=== PATIENT | female | born 1945 | race Caucasian/White ===

== ENCOUNTER 2017-11-07 09:00 | Outpatient (RCR) | payer OTHER ==
--- NOTE | 2017-10-23 15:41 | RS.OPPTEV2 ---
Date of Note: 10/22/17 Visit #: 1 Date of Evaluation: 10/22/17 Payer Source: MEDICARE Treatment Diagnosis: Frequent falls, LE weakness History of Condition/Mechanism of Injury:: Patient reports having frequent falls. States she has fallen four times in the last 6 months. Prior Level of Function.....Patient was independent with: ADL's, Self Care, Caregiving, Ambulation/Mobility, Community Integration/Access Functional Limitations: Lifting, Standing, Ambulation, Community Access/ Integration Current Subjective/complaints:: States her sons wanted her to come to therapy because of her recent falls. States her most recent fall was at the end of July 2017, when she was walking out to her car and she fell with no warning. Patient states she has a quad cane that she uses when she walks long distances. She feels like she is falling due to leg weakness. States she has numbness in her feet, which comes and goes. States her left hip is hurting. States she tripped not long ago and feels that she may have strained her hip. She is hopeful that Physical Therapy will get her stronger and help her avoid falls. Medical History Medical History: Hypertension, Diabetes Medical History Comments:: Peripheral neuropathy Surgical History: Hysterectomy Surgical History Comments:: bilateral cataract surgery Hx Home Medications: HCTZ, Ibuprofen PRN, Lisinopril,Metformin, Pravastatin Functional Outcome Measure Tinetti: 19 (19/28=32.1% impairment) Other: Timed Get UP & GO: 13.5 seconds Fall Risk Assessment on [employer] Balance Pattern Maker score of 2.3 Overall Stability Index - G Codes & Severity Modifier G Codes & Modifier: Mobility current CJ. Mobility goal CI Source of G Code score: Tinetti Assessment shows her to be at Moderate risk for falls. Observation - Observation Posture: Forward Head, Rounded Shoulders, Decreased Lumbar Lordosis Handedness: Right Gait - Gait Pattern Gait Comments: Patient ambulates without a cane in the department. She demonstrates bilateral trunk lean laterally and minimal foot clearance during swing phase. She demonstrates a wide base of support with ambulation. General Range of Motion: Patient demonstrates function AROM WFL's of trunk and LE's. Muscle Strength: Bilateral hip strength is 4-/5 generally throughout. Bilateral quads 4/5, HS 4/5. Ankles bilaterally 4/5. Trunk strength 3+/5. Sensation - Sensation Comments: States sensation to light touch and deep pressure is intact throughout bilateral LE's. States numbness in her feet comes and goes. Balance - Sitting Balance Static Sitting Balance: Good Dynamic Sitting Balance: Good - Standing Balance Static Standing Balance: Good (-) Dynamic Standing Balance: Good (-) Coordination - Tests Bilateral Heel to Anderson: Mild Deviation (most likely due to hip weakness) Toe Tapping: Normal/Intact Interventions - Exercise/Activities/Manual Therapy Exercises/Activities: Patient instructed in exercises for home of: seated hip fleixon, seated unsupported anterior/posterior trunk weight shifting, bridging, and standing hip abduction. Emphasized the need to use a secure surface to hold on to for the standing hip exercise. Manual Therapy: NA HOME EXERCISE PROGRAM: seated hip fleixon, seated unsupported anterior/ posterior trunk weight shifting, bridging, and standing hip abduction. Emphasized the need to use a secure surface to hold on to for the standing hip exercise. - Charges Timed Code Treatment Minutes: 55 mins Total Treatment Time: 55 mins Procedures billed for this date of service:: [facility] Assessment Assessment: Patient presents to therapy with a diagnosis of frequent falls. She demonstrates weakness in the LE's and trunk. Tinetti Assessment presents her to be at a Moderate risk for falls. She also presents to be at risk for falls with a score of 13.5 seconds on the Timed Up & Go test. She demonstrates good potential to benefit from LE and trunk strengthening and balance activities to improve safety and decrease her risk for falls. Patient Education: Education of diagnosis, Body/Joint mechanics, Home Exercise Program, Activity Modification, Education of Plan of Care Rehab Potential: Good Short Term Goals Goal #1: Pt independent and compliant with HEP. Goal to be met by: 11/06/17 Goal #2: Trunk strength 4/5. Goal to be met by: 11/06/17 Goal #3: Bilateral hip strength generally 4/5. Goal to be met by: 11/06/17 Microsoft Exchange Architect Goals Goal #1: Pt knows HEP and to continue ex's to maintain level of function at D/C. Goal to be met by: 12/02/17 Goal #2: Score on Tinetti Assessment improved to 24/28. Goal to be met by: 12/02/17 Goal #3: Pt to amb. community distances with AAD and good safety. Goal to be met by: 12/02/17 Goal #4: Pt to report improved confidence in balance and safety. Goal to be met by: 12/02/17 Plan - Treatment to be Provided Procedures: Therapeutic Exercises, Therapeutic Activity, Gait Training, Neuromuscular Rehab, Patient Education Modalities: No Modalities - Treatment Plan Frequency: 2-3 X week Duration: 4 weeks ORDER # VISITS AND/OR THROUGH DATE: 12/02/17 - Treatment Code (1) Leg weakness Code(s): M62.81 - MUSCLE WEAKNESS (GENERALIZED) Qualifiers: Laterality: bilateral Qualified Code(s): R29.898 - Other symptoms and signs involving the musculoskeletal system (2) Frequent falls Code(s): R29.6 - REPEATED FALLS Comments: R29.6 (3) Gait abnormality Code(s): R26.9 - UNSPECIFIED ABNORMALITIES OF GAIT AND MOBILITY Comments: R26.9
--- NOTE | 2017-10-24 11:37 | RS.OPPTDN ---
Subjective Date of Note: 10/24/17 Visit #: 2 Date of Evaluation: 10/22/17 Payer Source: MEDICARE Treatment Diagnosis: Frequent falls, LE weakness Current Subjective/complaints:: Patient reports right knee was sore this morning when she got up and left hip was a little sore following the evaluation. Interventions - Exercise/Activities/Manual Therapy Exercises/Activities: Patient performed the following activites: seated resisted HS curls with red theraband, and resisted hip IR and ER with yellow theraband, 2 sets of 8 reps each. Also performed seated bilateral shoulder flexion with ball for trunk stability. In supine, performs SAQ and alternate hip flexion with 2# weight, resisted HS curl and ankle DF, inversion and eversion with red theraband all 2 sets of 8 reps. Patient performed dynamic balance activities in standing with assistance. Steps forward and back and then laterally and back. Patient is much more unsteady when standing on the left LE while moving the right. She requires hand held assistance to perform the standing balance exercises. Manual Therapy: NA HOME EXERCISE PROGRAM: seated hip fleixon, seated unsupported anterior/ posterior trunk weight shifting, bridging, and standing hip abduction. Emphasized the need to use a secure surface to hold on to for the standing hip exercise. - Charges Timed Code Treatment Minutes: 35 mins Total Treatment Time: 35 mins Procedures billed for this date of service:: EX2 Assessment: Patient reports some left hip soreness following the evaluation. Patient tolerated all exercises well today. Denies left hip pain during activities. States she is performing her exercises at home. Patient demonstrates compliance with HEP?: Yes Short Term Goals Goal #1: Pt independent and compliant with HEP. Goal to be met by: 11/06/17 Progress towards Goal:: Progressing Goal #2: Trunk strength 4/5. Goal to be met by: 11/06/17 Goal #3: Bilateral hip strength generally 4/5. Goal to be met by: 11/06/17 Public Health Advisor Goals Goal #1: Pt knows HEP and to continue ex's to maintain level of function at D/C. Goal to be met by: 12/02/17 Goal #2: Score on Tinetti Assessment improved to 24/28. Goal to be met by: 12/02/17 Goal #3: Pt to amb. community distances with AAD and good safety. Goal to be met by: 12/02/17 Goal #4: Pt to report improved confidence in balance and safety. Goal to be met by: 12/02/17 Plan PLAN OF CARE EXPIRES ON:: 12/02/17 ORDER # VISITS AND/OR THROUGH DATE: 12/02/17 PLAN: Progress balance and strengthening activities to improve her stability and safety.
--- NOTE | 2017-10-29 08:46 | RS.CXNS ---
Date of scheduled appointment: 10/29/17 Type: Cancel Reason for Cancel/NS: inclement weather
--- NOTE | 2017-10-31 14:35 | RS.OPPTDN ---
Subjective Date of Note: 10/31/17 Visit #: 3 Date of Evaluation: 10/22/17 Payer Source: MEDICARE Treatment Diagnosis: Frequent falls, LE weakness Current Subjective/complaints:: Patient denies dizziness or unsteady gait since last session. She says she has been performing HEP twice daily. Pain Assessment - Pain Description Pain Location: stiffness to bilateral knees Interventions - Exercise/Activities/Manual Therapy Exercises/Activities: In supine, passive R hamstring stretching x 3. She performs SAQ and alternate hip flexion with 2# weight, resisted HS curl and ankle DF, inversion and eversion with red theraband all 2 sets of 8 reps. Ball squeezes, isometric hip flexion and abd 2x10. Sitting: ham curls red tband and 1# wand for bilateral shoulder flexion and red tband for scap retraction x 10. Patient performed dynamic balance activities in standing with assistance. Steps forward and back and then laterally and back. Only CGA intermittently required with backwards walking. Marching in place at rail and heel/toe raises. Total minutes of Exercise: 38 Manual Therapy: NA HOME EXERCISE PROGRAM: seated hip fleixon, seated unsupported anterior/ posterior trunk weight shifting, bridging, and standing hip abduction. Emphasized the need to use a secure surface to hold on to for the standing hip exercise. - Charges Timed Code Treatment Minutes: 38 Total Treatment Time: 38 Procedures billed for this date of service:: ex3 Assessment: Patient without c/o dizziness or unsteadiness today. She says she has not fallen since Halloween. She is able to perform all therex well and without c/o. She is able to maintain bal with dynamic exercises with exception of slight unsteadiness with backwards amb at one point. Patient Education: Education of diagnosis, Body/Joint mechanics, Home Exercise Program, Home Safety Patient demonstrates compliance with HEP?: Yes Short Term Goals Goal #1: Pt independent and compliant with HEP. Goal to be met by: 11/06/17 Progress towards Goal:: Progressing Goal #2: Trunk strength 4/5. Goal to be met by: 11/06/17 Goal #3: Bilateral hip strength generally 4/5. Goal to be met by: 11/06/17 Diamond Grinder Goals Goal #1: Pt knows HEP and to continue ex's to maintain level of function at D/C. Goal to be met by: 12/02/17 Goal #2: Score on Tinetti Assessment improved to 24/28. Goal to be met by: 12/02/17 Goal #3: Pt to amb. community distances with AAD and good safety. Goal to be met by: 12/02/17 Goal #4: Pt to report improved confidence in balance and safety. Goal to be met by: 12/02/17 Plan PLAN OF CARE EXPIRES ON:: 12/02/17 ORDER # VISITS AND/OR THROUGH DATE: 12/02/17 PLAN: Patient to continue to work on thereWAYN for LE's strength and dynamic exercise for bal.
--- NOTE | 2017-11-05 10:37 | RS.OPPTDN ---
Subjective Date of Note: 11/05/17 Visit #: 4 Date of Evaluation: 10/22/17 Payer Source: MEDICARE Treatment Diagnosis: Frequent falls, LE weakness Current Subjective/complaints:: Patient c/o stiffness to the R hip, but says she feels good. Reports no significant pain. Patient admits to performing HEP BID and has performed prior to coming in to PT this morning. Pain Assessment - Pain Description Pain Location: R hip - Heat/Cryotherapy Treatment: Hot Pack (to the R hip in supine during stretches and exercises) Interventions - Exercise/Activities/Manual Therapy Exercises/Activities: In supine, passive R hamstring stretching x 3. She performs SAQ and alternate hip flexion with 2# weight, resisted HS curl and ankle DF, inversion and eversion with red theraband all 2 sets of 8 reps. Ball squeezes, isometric hip flexion and abd 2x10. Sitting: ham curls red tband and 1# wand for bilateral shoulder flexion and red tband for scap retraction x 10. Patient performed dynamic balance activities in standing with assistance. Steps forward and back and then laterally and back. Only CGA intermittently required with backwards walking. Marching in place at rail and heel/toe raises and hip abd x 10. Initiated Stationary bike x 1.5 mins due to causing R knee soreness with flexion for and retro.. Total minutes of Exercise: 38 Manual Therapy: NA HOME EXERCISE PROGRAM: seated hip fleixon, seated unsupported anterior/ posterior trunk weight shifting, bridging, and standing hip abduction. Emphasized the need to use a secure surface to hold on to for the standing hip exercise. - Charges Timed Code Treatment Minutes: 38 Total Treatment Time: 38 Procedures billed for this date of service:: ex3 Assessment: Patient presents with decreased R hip pain and only mild stiffness today, which did improve with moist heat and stretching. HS (R) remain tight, but is showing increased flexibility. She is able to perform all therex without LOB and should continue to improve with further dynamic exercise and LE strengthening. May try stationary bike next session, but if causes further pain to the R knee can discontinue and focus on WBing/bal activities. Patient Education: Education of diagnosis, Home Exercise Program Patient demonstrates compliance with HEP?: Yes Short Term Goals Goal #1: Pt independent and compliant with HEP. Goal to be met by: 11/06/17 Progress towards Goal:: Progressing Goal #2: Trunk strength 4/5. Goal to be met by: 11/06/17 Goal #3: Bilateral hip strength generally 4/5. Goal to be met by: 11/06/17 Search Strategist Goals Goal #1: Pt knows HEP and to continue ex's to maintain level of function at D/C. Goal to be met by: 12/02/17 Goal #2: Score on Tinetti Assessment improved to . Goal to be met by: 12/02/17 Goal #3: Pt to amb. community distances with AAD and good safety. Goal to be met by: 12/02/17 Goal #4: Pt to report improved confidence in balance and safety. Goal to be met by: 12/02/17 Plan PLAN OF CARE EXPIRES ON:: 12/02/17 ORDER # VISITS AND/OR THROUGH DATE: 12/02/17 PLAN: Patient to continue for bilateral LE strengthening and HS flexibility exercises.
--- NOTE | 2017-11-07 11:34 | RS.OPPTDN ---
Subjective Date of Note: 11/07/17 Visit #: 5 Date of Evaluation: 10/22/17 Payer Source: MEDICARE Treatment Diagnosis: Frequent falls, LE weakness Current Subjective/complaints:: Patient says she is hurting at the R anterior thigh and along the groin. She feels this may be from beginning on exercise bike here. She wishes to avoid it today to see if her symptoms decrease. - Heat/Cryotherapy Treatment: Hot Pack (15 mins to the R anterior thigh in supine) Interventions - Exercise/Activities/Manual Therapy Exercises/Activities: In supine, passive R hamstring stretching and lower trunk rotation x 3. She performs SAQ and alternate hip flexion with 2 1/2# weight, resisted HS curl and ankle DF green tband, inversion and eversion with green theraband all 2 sets of 10 reps. Ball squeezes, isometric hip flexion and abd 2x10. Alternate LE lift 2 1/2# each 2x10. Sitting: ham curls red tband and 1 # wand for bilateral shoulder flexion and red tband for scap retraction x 10. Patient performed dynamic balance activities in standing with assistance. Steps forward and back and then laterally and back. Only CGA intermittently required with backwards walking. Marching in place at rail and heel/toe raises and hip abd x 10. Forward step board leading with L, then R foot x 10 each. Omitted bike today to verify any change in pain level. Total minutes of Exercise: 38 Manual Therapy: NA HOME EXERCISE PROGRAM: seated hip fleixon, seated unsupported anterior/ posterior trunk weight shifting, bridging, and standing hip abduction. Emphasized the need to use a secure surface to hold on to for the standing hip exercise. - Charges Timed Code Treatment Minutes: 38 Total Treatment Time: 38 Procedures billed for this date of service:: ex3 Assessment: Patient presents with increased soreness to the R anterior thigh extending into the groin. Patient had relief after moist heat applied. No difficulty elmer stretches or other therex. She is able to maintain sequence and bal during step board. Progressed scapular retraction to green tband. Patient Education: Body/Joint mechanics, Home Exercise Program Patient demonstrates compliance with HEP?: Yes Short Term Goals Goal #1: Pt independent and compliant with HEP. Goal to be met by: 11/06/17 Progress towards Goal:: Progressing Goal #2: Trunk strength 4/5. Goal to be met by: 11/06/17 Goal #3: Bilateral hip strength generally 4/5. Goal to be met by: 11/06/17 Prison Goals Goal #1: Pt knows HEP and to continue ex's to maintain level of function at D/C. Goal to be met by: 12/02/17 Goal #2: Score on Tinetti Assessment improved to 24/28. Goal to be met by: 12/02/17 Goal #3: Pt to amb. community distances with AAD and good safety. Goal to be met by: 12/02/17 Goal #4: Pt to report improved confidence in balance and safety. Goal to be met by: 12/02/17 Plan PLAN OF CARE EXPIRES ON:: 12/02/17 ORDER # VISITS AND/OR THROUGH DATE: 12/02/17 PLAN: Continue to progress with trunk stability, general strengthening, and bal activities.
== END 2017-11-13 ==
PROVIDERS: ATTEND Internal Medicine Nephrology
DX: M62.81 Muscle weakness (generalized) (principal); R29.898 Other symptoms and signs involving the musculoskeletal system; R29.6 Repeated falls; R26.9 Unspecified abnormalities of gait and mobility

== ENCOUNTER → 2017-12-11 | Outpatient (RCR) | payer OTHER ==
--- NOTE | 2017-11-14 16:08 | RS.OPPTDN ---
Subjective Date of Note: 11/14/17 Visit #: 6 Date of Evaluation: 10/22/17 Payer Source: MEDICARE Treatment Diagnosis: Frequent falls, LE weakness Current Subjective/complaints:: Patient c/o soreness to both legs due to riding in car to/from [place], [place] and going up/down son's 14 steps. She says she also has stiffness to the R hip as well. Interventions - Exercise/Activities/Manual Therapy Exercises/Activities: In supine, passive R hamstring stretching and lower trunk rotation x 3. She performs SAQ and alternate hip flexion with 2 1/2# weight, resisted HS curl and ankle DF green tband, inversion and eversion with green theraband all 2 sets of 10 reps. Ball squeezes, isometric hip flexion and abd 2x10. Alternate LE lift 2 1/2# each 2x10. Sitting: ham curls green tband and 2# wand for bilateral shoulder flexion and green tband for scap retraction x 10. Patient performed dynamic balance activities in standing with assistance. Steps forward and back and then laterally and back with 2# each leg. Only CGA intermittently required with backwards walking. Marching in place at rail and heel/toe raises and hip abd with 2# ea x 10. Stationary bike x 3 mins with seat scooted back. Total minutes of Exercise: 38 Manual Therapy: NA HOME EXERCISE PROGRAM: seated hip fleixon, seated unsupported anterior/ posterior trunk weight shifting, bridging, and standing hip abduction. Emphasized the need to use a secure surface to hold on to for the standing hip exercise. - Charges Timed Code Treatment Minutes: 38 Total Treatment Time: 38 Procedures billed for this date of service:: ex3 Assessment: Patient experiencing increased soreness to bilateral LEs related to climbing Patient Education: Education of diagnosis, Home Exercise Program Patient demonstrates compliance with HEP?: Yes Short Term Goals Goal #1: Pt independent and compliant with HEP. Goal to be met by: 11/06/17 Progress towards Goal:: Progressing Goal #2: Trunk strength 4/5. Goal to be met by: 11/06/17 Progress towards Goal:: Progressing Goal #3: Bilateral hip strength generally 4/5. Goal to be met by: 11/06/17 Progress towards Goal:: Progressing Skilled Nursing Goals Goal #1: Pt knows HEP and to continue ex's to maintain level of function at D/C. Goal to be met by: 12/02/17 Progress towards goal: Progressing Goal #2: Score on Tinetti Assessment improved to 24/28. Goal to be met by: 12/02/17 Goal #3: Pt to amb. community distances with AAD and good safety. Goal to be met by: 12/02/17 Goal #4: Pt to report improved confidence in balance and safety. Goal to be met by: 12/02/17 Plan PLAN OF CARE EXPIRES ON:: 12/02/17 ORDER # VISITS AND/OR THROUGH DATE: 12/02/17 PLAN: Patient to continue x 2 more weeks for strengthening to the LE's, trunk stability, and bal.
--- NOTE | 2017-11-15 11:44 | RS.OPPTDN ---
Subjective Date of Note: 11/15/17 Visit #: 7 Date of Evaluation: 10/22/17 Payer Source: MEDICARE Treatment Diagnosis: Frequent falls, LE weakness Current Subjective/complaints:: Patient says she has already performed HEP this morning. Reports performing 2-3 times daily. Says she did not have as much trouble elmer the exercise bike yesterday as she thought she would, but c/o soreness to bilateral thighs and L knee. Interventions - Exercise/Activities/Manual Therapy Exercises/Activities: In supine, passive R hamstring stretching and lower trunk rotation x 3. She performs SAQ and alternate hip flexion with 2 1/2# weight, resisted HS curl and ankle DF green tband, inversion and eversion with green theraband all 2 sets of 10 reps. Ball squeezes, isometric hip flexion and abd 2x10. Alternate LE lift 2 1/2# each 2x10. Sitting: ham curls green tband and 2# wand for bilateral shoulder flexion and green tband for scap retraction 2 x 10. Patient performed dynamic balance activities in standing with assistance. Steps forward and back and then laterally and back with 2# each leg. Only CGA intermittently required with backwards walking. Marching in place at rail and heel/toe raises and hip abd with 2# ea x 10. Multiple reps with 2# each LE for combination side step and marching 4 x 7 reps. Total minutes of Exercise: 38 Manual Therapy: NA HOME EXERCISE PROGRAM: seated hip fleixon, seated unsupported anterior/ posterior trunk weight shifting, bridging, and standing hip abduction. Emphasized the need to use a secure surface to hold on to for the standing hip exercise. - Charges Timed Code Treatment Minutes: 38 Total Treatment Time: 38 Procedures billed for this date of service:: ex3 Assessment: Patient very compliant with HeP. She is having mild muscle fatigue and soreness to bilateral quads and to the L knee. She is able to maintain good bal with resisted standing and dynamic exercises. We avoided stationary bike due to having this soreness and also she was here 2 days in a row. Patient Education: Home Exercise Program, Education of Plan of Care Patient demonstrates compliance with HEP?: Yes Short Term Goals Goal #1: Pt independent and compliant with HEP. Goal to be met by: 11/06/17 Progress towards Goal:: Progressing Goal #2: Trunk strength 4/5. Goal to be met by: 11/06/17 Progress towards Goal:: Progressing Goal #3: Bilateral hip strength generally 4/5. Goal to be met by: 11/06/17 Progress towards Goal:: Progressing Security Specialist Goals Goal #1: Pt knows HEP and to continue ex's to maintain level of function at D/C. Goal to be met by: 12/02/17 Progress towards goal: Progressing Goal #2: Score on Tinetti Assessment improved to 24. Goal to be met by: 12/02/17 Goal #3: Pt to amb. community distances with AAD and good safety. Goal to be met by: 12/02/17 Goal #4: Pt to report improved confidence in balance and safety. Goal to be met by: 12/02/17 Plan PLAN OF CARE EXPIRES ON:: 12/02/17 ORDER # VISITS AND/OR THROUGH DATE: 12/02/17 PLAN: Patient to continue x 3 more sessions per order
--- NOTE | 2017-11-19 16:24 | RS.OPPTDN ---
Subjective Date of Note: 11/19/17 Visit #: 8 Date of Evaluation: 10/22/17 Payer Source: MEDICARE Treatment Diagnosis: Frequent falls, LE weakness Current Subjective/complaints:: Patient says she is tired. Reports she had a busy weekend. Says she is gaining strength to the LE's and would like to continue with therapy after her current order is complete. Interventions - Exercise/Activities/Manual Therapy Exercises/Activities: In supine, passive R hamstring stretching and lower trunk rotation x 3. She performs SAQ and alternate hip flexion with 2 1/2# weight, resisted HS curl and ankle DF green tband, inversion and eversion with green theraband all 2 sets of 10 reps. Ball squeezes, isometric hip flexion and abd 2x10. Alternate LE lift 2 1/2# each 2x10. Sitting: ham curls green tband and 2# wand for bilateral shoulder flexion and green tband for scap retraction 2 x 10. Patient performed dynamic balance activities in standing with assistance. Steps forward and back and then laterally and back with 2# each leg. Only CGA intermittently required with backwards walking. Marching in place at rail and heel/toe raises and hip abd with 2# ea x 10. Stationary bike x 4 mins. Total minutes of Exercise: 38 Manual Therapy: NA HOME EXERCISE PROGRAM: seated hip fleixon, seated unsupported anterior/ posterior trunk weight shifting, bridging, and standing hip abduction. Emphasized the need to use a secure surface to hold on to for the standing hip exercise. - Charges Timed Code Treatment Minutes: 38 Total Treatment Time: 38 Procedures billed for this date of service:: ex3 Assessment: Patient fatigues easily with standing exercises today and requires constant assistance with holding R foot in place of the pedal on bike. She is able to maintain improved bal in sitting while performing postural exercises with decreased posterior lean. Patient Education: Home Exercise Program, Activity Modification Patient demonstrates compliance with HEP?: Yes Short Term Goals Goal #1: Pt independent and compliant with HEP. Goal to be met by: 11/06/17 Progress towards Goal:: Met Goal #2: Trunk strength 4/5. Goal to be met by: 11/06/17 Progress towards Goal:: Met Goal #3: Bilateral hip strength generally 4/5. Goal to be met by: 11/06/17 Progress towards Goal:: Met Grey Washer Goals Goal #1: Pt knows HEP and to continue ex's to maintain level of function at D/C. Goal to be met by: 12/02/17 Progress towards goal: Progressing Goal #2: Score on Tinetti Assessment improved to 24/28. Goal to be met by: 12/02/17 Goal #3: Pt to amb. community distances with AAD and good safety. Goal to be met by: 12/02/17 Progress towards goal: Progressing Goal #4: Pt to report improved confidence in balance and safety. Goal to be met by: 12/02/17 Plan PLAN OF CARE EXPIRES ON:: 12/02/17 ORDER # VISITS AND/OR THROUGH DATE: 12/02/17 PLAN: Continue therex x 1-2 more week(s)
--- NOTE | 2017-11-21 16:32 | RS.OPPTDN ---
Subjective Date of Note: 11/21/17 Visit #: 9 Date of Evaluation: 10/22/17 Payer Source: MEDICARE Treatment Diagnosis: Frequent falls, LE weakness Current Subjective/complaints:: Patient states she feels like she is walking better. States she usually takes one step at a time on stairs, but this weekend she did not have to. States she is still very cautious on stairs because she is afraid of falling. She performs her exercises after every meal, every day. Interventions - Exercise/Activities/Manual Therapy Exercises/Activities: In supine, passive R hamstring stretching and lower trunk rotation x 3. She performs SAQ and alternate hip flexion with 2 1/2# weight, resisted HS curl and ankle DF with green theraband all 2 sets of 10 reps. Ball squeezes, isometric hip flexion and abd 2x10. Alternate LE lift 2 1/2# each 2x10. Sitting: ham curls green tband and 2# wand for bilateral shoulder flexion and green tband for scap retraction 2 x 10. Patient performed dynamic balance activities in standing with assistance. Performed lateral walking with WORKFORCE DEVELOPMENT VICE PRESIDENT, with minimal unsteadiness. Marching in place at rail and heel/toe raises and hip abd and extension,with 2# ea x 10. Stationary bike x 3 mins. Total minutes of Exercise: 43 mins Manual Therapy: NA HOME EXERCISE PROGRAM: seated hip fleixon, seated unsupported anterior/ posterior trunk weight shifting, bridging, and standing hip abduction. Emphasized the need to use a secure surface to hold on to for the standing hip exercise. - Charges Timed Code Treatment Minutes: 43 mins Total Treatment Time: 53 mins Procedures billed for this date of service:: EX3 Assessment: Patient does well with all exercises. She feels she is walking better and able to ascend/descend stairs easier. She is very consistent with her exercises. Patient Education: Education of diagnosis, Home Exercise Program, Home Safety Patient demonstrates compliance with HEP?: Yes Short Term Goals Goal #1: Pt independent and compliant with HEP. Goal to be met by: 11/06/17 Progress towards Goal:: Met Goal #2: Trunk strength 4/5. Goal to be met by: 11/06/17 Progress towards Goal:: Met Goal #3: Bilateral hip strength generally 4/5. Goal to be met by: 11/06/17 Progress towards Goal:: Met Custodial Goals Goal #1: Pt knows HEP and to continue ex's to maintain level of function at D/C. Goal to be met by: 12/02/17 Progress towards goal: Progressing Goal #2: Score on Tinetti Assessment improved to 24/28. Goal to be met by: 12/02/17 Goal #3: Pt to amb. community distances with AAD and good safety. Goal to be met by: 12/02/17 Progress towards goal: Progressing Goal #4: Pt to report improved confidence in balance and safety. Goal to be met by: 12/02/17 Progress towards goal: Progressing Plan PLAN OF CARE EXPIRES ON:: 12/02/17 ORDER # VISITS AND/OR THROUGH DATE: 12/02/17 PLAN: Will reassess Tinetti score on next visit.
--- NOTE | 2017-11-26 16:09 | RS.OPPTDN ---
Subjective Date of Note: 11/26/17 Visit #: 10 Date of Evaluation: 10/22/17 Payer Source: MEDICARE Treatment Diagnosis: Frequent falls, LE weakness Current Subjective/complaints:: Patient says she has pain at the L hip from losing her bal on her toilet Saturday. She says she went to stand up and fell back onto the seat and hurt her L shoulder, head, and L hip. Reports shoulder and head is not bothering her now, just the hip. She denies needing to see her MD. Pain Assessment - Pain Description Pain Location: L hip - Heat/Cryotherapy Treatment: Hot Pack (around the L hip in sidelying ) Interventions - Exercise/Activities/Manual Therapy Exercises/Activities: In supine, passive R hamstring stretching and lower trunk rotation x 3. She performs SAQ and alternate hip flexion with 2 1/2# weight, resisted HS curl and ankle DF with green theraband all 2 sets of 10 reps. Ball squeezes, isometric hip flexion and abd 2x10. Alternate LE lift 2 1/2# each 2x10. Sitting: ham curls green tband and 2# wand for bilateral shoulder flexion and green tband for scap retraction 2 x 10. Lateral trunk lean with ball then to midline and leaning anteriorally for trunk strength. Patient performed dynamic balance activities in standing. Amb laterally ZOO VETERINARIAN with minimal unsteadiness. Marching in place at rail and heel/toe raises and hip abd and extension,with 2# ea x 10. Omitted bike due to patient request from L hip pain. Reassessed Tinetti's Test and TUG. Total minutes of Exercise: 45 Manual Therapy: NA HOME EXERCISE PROGRAM: seated hip fleixon, seated unsupported anterior/ posterior trunk weight shifting, bridging, and standing hip abduction. Emphasized the need to use a secure surface to hold on to for the standing hip exercise. - Objective Findings Observations,measurements,etc.: TUG=12 sec's. Tinetti= - Charges Timed Code Treatment Minutes: 45 Total Treatment Time: 45 Procedures billed for this date of service:: hp, ex3 Assessment: Patient has moderate L hip pain related to falling down onto toilet when trying to rise Saturday. She demo lateral hip shifting with amb in dept with decreased stance time on L LE. TUG score and Tinetti's did improve from eval. She is able to perform all ADLs at home without difficulty presently, but does c/o lack of confidence in being steady with community distances and prolonged standing and cooking for worship manager trust. She could possibly benefit from adding 2 more weeks of PT progressing dynamic activity. Patient Education: Body/Joint mechanics, Home Safety Patient demonstrates compliance with HEP?: Yes Short Term Goals Goal #1: Pt independent and compliant with HEP. Goal to be met by: 11/06/17 Progress towards Goal:: Met Goal #2: Trunk strength 4/5. Goal to be met by: 11/06/17 Progress towards Goal:: Met Goal #3: Bilateral hip strength generally 4/5. Goal to be met by: 11/06/17 Progress towards Goal:: Met [employer] Goals Goal #1: Pt knows HEP and to continue ex's to maintain level of function at D/C. Goal to be met by: 12/02/17 Progress towards goal: Progressing Goal #2: Score on Tinetti Assessment improved to 24/28. Goal to be met by: 12/02/17 Progress towards goal: Met Goal #3: Pt to amb. community distances with AAD and good safety. Goal to be met by: 12/02/17 Progress towards goal: Progressing Goal #4: Pt to report improved confidence in balance and safety. Goal to be met by: 12/02/17 Progress towards goal: Progressing Plan PLAN OF CARE EXPIRES ON:: 12/02/17 ORDER # VISITS AND/OR THROUGH DATE: 12/02/17 PLAN: Patient has completed current order. She may benefit from adding 2 more weeks to her treatment plan if MD agrees.
--- NOTE | 2017-12-05 12:50 | RS.OPPTDN ---
Subjective Date of Note: 12/05/17 Visit #: 11 Date of Evaluation: 10/22/17 Payer Source: MEDICARE Treatment Diagnosis: Frequent falls, LE weakness Current Subjective/complaints:: Patient says she continues to work on HEP while she has been on hold from therapy. Olivia says she did have some dizziness this morning, but is better now. She says she will be on her feet for a long time tomorrow making dumplings for roman catholic event tomorrow. She says that she will try to take breaks and sit. <BRYON GARCES - Last Filed: 12/05/17 12:08> Pain Assessment - Pain Description Pain Location: no pain c/o's <BRYON GARCES Filed: 12/05/17 12:08> Balance System Training - Level 1 Postural Stability/Symmetry #1 Training Mode: Weight Shift Training Vision: Eyes Open Task: None Platform Stability Level (1-12): static Stance: Narrow Time: 1 min Reps: 3 #2 Training Mode: Postural Stability Training Vision: Eyes Open Task: None Platform Stability Level (1-12): static Stance: Narrow Time: 1 min Reps: 3 - Level 2 Dynamic Weight Shifting #1 Training Mode: Limits of Stability Skill Level (1-3): 1 Platform Stability Level (1-12): static Reps: 2 #2 Training Mode: Maze Control Skill Level (1-3): 1 Platform Stability Level (1-12): static Reps: 2 <BRYON GARCES - Filed: 12/05/17 12:08> Interventions - Exercise/Activities/Manual Therapy Exercises/Activities: Therex focused on Balance [place] and GT/dynamic bal activities. Began with Bal Char Conveyor Tender Cellar: See TAB. Standing at railin# each LE for marching, heel raises, and hip abd with side stepping x 10. Standing on Blue foam for heel raises, minisquats, weight shifting A/P and laterally. Dill air pad for marching/weight shifting laterally and A/P. Stepping over foam/air pads scattered on floor. Walking through and around cones and over medium bolster x 3. Ended with stationary bike for constant assistance for R foot in strap x 3 mins forward slow speed. Total minutes of Exercise: 40 Manual Therapy: NA HOME EXERCISE PROGRAM: seated hip fleixon, seated unsupported anterior/ posterior trunk weight shifting, bridging, and standing hip abduction. Emphasized the need to use a secure surface to hold on to for the standing hip exercise. - Charges Timed Code Treatment Minutes: 40 Total Treatment Time: 40 Procedures billed for this date of service:: ex, neuro2 <BRYON GARCES - Last Filed: 12/05/17 12:08> Assessment: Patient has been consistent with HEP and needs to focus on dynamic activity including Bal [place]. She has a new order to continue for 2 more weeks. Bal [place] reveals difficulty with shifting weight posteriorally and to the L. She was able to step across most all objects with only coming in contact with 2 items, medium bolster and foam. She was able to maintain bal however, but does get out of breath with Bal [place] and WBing activities. She should improve with further therex with this focus. Patient Education: Home Exercise Program, Education of Plan of Care Patient demonstrates compliance with HEP?: Yes <BRYON GARCES - Last Filed: 12/05/17 12:08> Short Term Goals Goal #1: Pt independent and compliant with HEP. Goal to be met by: 11/06/17 Progress towards Goal:: Met Goal #2: Trunk strength 4/5. Goal to be met by: 11/06/17 Progress towards Goal:: Met Goal #3: Bilateral hip strength generally 4/5. Goal to be met by: 11/06/17 Progress towards Goal:: Met <BRYON GARCES - Last Filed: 12/05/17 12:08> Goal #3: Bilateral hip strength generally 4+/5. Goal to be met by: 12/13/17 Progress towards Goal:: Progressing <RUBIA MENARD - Last Filed: 12/06/17 13:35> Data Designer Goals Goal #1: Pt knows HEP and to continue ex's to maintain level of function at D/C. Goal to be met by: 12/18/17 Progress towards goal: Progressing Goal #2: Score on Tinetti Assessment improved to 24/28. Goal to be met by: 12/18/17 Progress towards goal: Met Goal #3: Pt to amb. community distances with AAD and good safety. Goal to be met by: 12/18/17 Progress towards goal: Progressing Goal #4: Pt to report improved confidence in balance and safety. Goal to be met by: 12/18/17 Progress towards goal: Progressing <BRYON GARCES - Last Filed: 12/05/17 12:08> Plan PLAN OF CARE EXPIRES ON:: 12/18/17 ORDER # VISITS AND/OR THROUGH DATE: 12/18/17 PLAN: Continue for 2 more weeks with MD order to focus on dynamic activity and bal exercises <BRYON GARCES - Last Filed: 12/05/17 12:08>
--- NOTE | 2017-12-06 13:35 | RS.PTSUM ---
Progress Note/Summary Date of Note: 11/26/17 Date of Evaluation: 10/22/17 Number of Visits: 10 Reporting Period for this Progress Note: 10/22/17 through 11/26/17 Current Complaints/Gains: Patient reports she is gaining strength and feels that she is steadier. She says she recently fell back onto her toilet and hurt the left shoulder, hip, and head, but felt it was not bad enough to seek medical attention. She is requesting to continue therapy. Objective Measurements/Presentation: Tinetti Assessment score 24/28. Demonstrates consistency with HEP, but some difficulty with balance exercises. Score 17% on Limits of Stability test, 32% for Maze control. TUG 12 seconds. Patient continues to demonstrate bilateraly trunk lean with ambulation. Static standing balance is good. Dynamic standing balance is Good-. G Codes: Mobility current CI. Mobility goal CI Source of G Code Score: Tinetti Assessment - Short Term Goals Goal #1: Pt independent and compliant with HEP. Goal to be met by: 11/06/17 Progress towards Goal:: Met Goal #2: Trunk strength 4/5. Goal to be met by: 11/06/17 Progress towards Goal:: Met Goal #3: Bilateral hip strength generally 4+/5 Goal to be met by: 12/13/17 Progress towards Goal:: Progressing - Nursing Home Goals Goal #1: Pt knows HEP and to continue ex's to maintain level of function at D/C. Goal to be met by: 12/18/17 Progress towards goal: Progressing Goal #2: Score on Tinetti Assessment improved to 24/28. Goal to be met by: 12/18/17 Progress towards goal: Met Goal #3: Pt to amb. community distances with AAD and good safety. Goal to be met by: 12/18/17 Progress towards goal: Progressing Goal #4: Pt to report improved confidence in balance and safety. Goal to be met by: 12/18/17 Progress towards goal: Progressing - Assessment Assessment of Improvement/Progress: Patient has made progress with all goals. She demonstrates the need for more advanced exercises and activities to challenge her dynamic balance. She shows progress to gain more safety and confidence with her mobility/ambulation. - Plan Plan: Will request continuation of therapy sessions. PLAN OF CARE EXPIRES ON:: 12/18/17 ORDER # VISITS AND/OR THROUGH DATE: 12/18/17
--- NOTE | 2017-12-11 10:30 | RS.OPPTDN ---
Subjective Date of Note: 12/11/17 Visit #: 13 Date of Evaluation: 10/22/17 Payer Source: MEDICARE Treatment Diagnosis: Frequent falls, LE weakness Current Subjective/complaints:: Patient reports that she did a lot of errand running yesterday and is fatigued. She says she was dizzy Saturday and yesterday , but no longer this morning. She c/o R knee pain and says she will probably be having a TKR. Balance System Training - Level 1 Postural Stability/Symmetry #1 Training Mode: Weight Shift Training Platform Stability Level (1-12): 1 L to R weight shift then A/P Stance: Normal Time: 1 to 1.5 mins Reps: 3 - Level 2 Dynamic Weight Shifting #1 Training Mode: Maze Control Skill Level (1-3): 1 Platform Stability Level (1-12): 1 Time: ~1 min Reps: 3 #3 Training Mode: Limits of Stability Skill Level (1-3): 1 Platform Stability Level (1-12): 1 Time: ~ 1 min Reps: 2 Interventions - Exercise/Activities/Manual Therapy Exercises/Activities: Therex focused on Balance [place] and GT/dynamic bal activities. Continuned with Bal [place]: See TAB. Standing at railin# each LE for marching, heel raises, and hip abd with and incorporating high step sidestepping x 10. Standing on Blue BALANCE TOWER WATCHMAN foam for heel raises, minisquats, weight shifting A/P and laterally. Shelf reaching with 3# therapy wand reaching for bal at trunk to overhead x 12. Side stepping again at railing with 2# each leg highstepping with constant cueing for posture and to look up and not at feet multiple reps. Leg presses for 15, 30, and 45# bilaterally x 10 each. Finished with "obstacle course" amb over scattered items on the floor and walking around cones, making sudden stops and turning sharply. Total minutes of Exercise: 40 Manual Therapy: NA HOME EXERCISE PROGRAM: seated hip fleixon, seated unsupported anterior/ posterior trunk weight shifting, bridging, and standing hip abduction. Emphasized the need to use a secure surface to hold on to for the standing hip exercise. - Charges Timed Code Treatment Minutes: 40 Total Treatment Time: 40 Procedures billed for this date of service:: ex, neuro2 Assessment: Patient has progressed on Bal [place] from last session to today regarding the Weight Shift program (L to R) from avg 46-64% to now 73-93% skill level. Maze program from 17-32% to now 67% skill level. She is able to maintain bal walking over items scattered on the floor and walking around cones with improved ease since last week. Patient Education: Home Safety, Education of Plan of Care Patient demonstrates compliance with HEP?: Yes Short Term Goals Goal #1: Pt independent and compliant with HEP. Goal to be met by: 11/06/17 Progress towards Goal:: Met Goal #2: Trunk strength 4/5. Goal to be met by: 11/06/17 Progress towards Goal:: Met Goal #3: Bilateral hip strength generally 4+/5. Goal to be met by: 12/13/17 Progress towards Goal:: Progressing [facility] Goals Goal #1: Pt knows HEP and to continue ex's to maintain level of function at D/C. Goal to be met by: 12/18/17 Progress towards goal: Progressing Goal #2: Score on Tinetti Assessment improved to 24/28. Goal to be met by: 12/18/17 Progress towards goal: Met Goal #3: Pt to amb. community distances with AAD and good safety. Goal to be met by: 12/18/17 Progress towards goal: Met Comments: Patient amb independently Goal #4: Pt to report improved confidence in balance and safety. Goal to be met by: 12/18/17 Progress towards goal: Progressing Plan PLAN OF CARE EXPIRES ON:: 12/18/17 ORDER # VISITS AND/OR THROUGH DATE: 12/18/17 PLAN: Patient to continue x 3 more sessions per continuation order through .
--- NOTE | 2017-12-11 10:33 | RS.OPPTDN ---
Subjective Date of Note: 12/09/17 Visit #: 12 Date of Evaluation: 10/22/17 Payer Source: MEDICARE Treatment Diagnosis: Frequent falls, LE weakness Current Subjective/complaints:: Patient says she has felt worn out cooking and standing for alevism event. She says she finally had to sit down and go home due to fatigue. She c/o intermittent dizziness today and increased L knee pain. She reports being sore after her last session. Balance System Training - Level 1 Postural Stability/Symmetry #1 Training Mode: Weight Shift Training Vision: Eyes Open Task: None Platform Stability Level (1-12): 1: EASY Stance: Narrow Time: 1 to 1.5 mins Reps: 3 - Level 2 Dynamic Weight Shifting #1 Training Mode: Limits of Stability Skill Level (1-3): 1: EASY Platform Stability Level (1-12): static Time: 1 to 1.5 mins Reps: 3 #3 Training Mode: Random Control Skill Level (1-3): 1:EASY Platform Stability Level (1-12): 1 Time: ~1 min Reps: 2 Interventions - Exercise/Activities/Manual Therapy Exercises/Activities: Therex focused on Balance Production Sorter and GT/dynamic bal activities. Continuned with Bal Production Sorter: See TAB. Standing at railin# each LE for marching, heel raises, and hip abd with and incorporating high step sidestepping x 10. Standing on Blue BALANCE SHUTDOWN PLANNER foam for heel raises, minisquats, weight shifting A/P and laterally. Dill air pad for weight shifting laterally and A/P. Shelf reaching with 1# on each arm reaching for bal at trunk to overhead x 10. Side stepping again at railing with 2# each leg highstepping with constant cueing for posture and to look up and not at feet multiple reps. Ended with Leg press 15# 2x10, 30# x 10. Total minutes of Exercise: 38 Manual Therapy: NA HOME EXERCISE PROGRAM: seated hip fleixon, seated unsupported anterior/ posterior trunk weight shifting, bridging, and standing hip abduction. Emphasized the need to use a secure surface to hold on to for the standing hip exercise. - Charges Timed Code Treatment Minutes: 38 Total Treatment Time: 38 Procedures billed for this date of service:: ex1, neuro2 Assessment: Patient admitting increased fatigue with recent alevism cooking and standing for a prolonged period. She demo intermittent dizziness and more difficulty with breathing during BAL SHUTDOWN PLANNER and STANDING EX. She demo improvement with Limits of stability on BAL SHUTDOWN PLANNER from previous session to 26 % from 17% . Difficulty with Random Control when shifting weight posteriorally by pushing her bottom outward to compensate. Patient Education: Home Exercise Program, Home Safety, Education of Plan of Care Patient demonstrates compliance with HEP?: Yes Short Term Goals Goal #1: Pt independent and compliant with HEP. Goal to be met by: 11/06/17 Progress towards Goal:: Met Goal #2: Trunk strength 4/5. Goal to be met by: 11/06/17 Progress towards Goal:: Met Goal #3: Bilateral hip strength generally 4+/5. Goal to be met by: 12/13/17 Progress towards Goal:: Progressing Outside Salesperson Goals Goal #1: Pt knows HEP and to continue ex's to maintain level of function at D/C. Goal to be met by: 12/18/17 Progress towards goal: Progressing Goal #2: Score on Tinetti Assessment improved to 24/28. Goal to be met by: 12/18/17 Progress towards goal: Met Goal #3: Pt to amb. community distances with AAD and good safety. Goal to be met by: 12/18/17 Progress towards goal: Met Goal #4: Pt to report improved confidence in balance and safety. Goal to be met by: 12/18/17 Progress towards goal: Progressing Plan PLAN OF CARE EXPIRES ON:: 12/18/17 ORDER # VISITS AND/OR THROUGH DATE: 12/18/17 PLAN: Continue bal exercises x 4 more sessions.
== END ==
PROVIDERS: ATTEND Internal Medicine Nephrology
DX: R29.6 Repeated falls (principal); R26.9 Unspecified abnormalities of gait and mobility

== ENCOUNTER 2017-12-17 09:15 | Outpatient (RCR) ==
--- NOTE | 2017-12-13 10:56 | RS.OPPTDN ---
Subjective Date of Note: 12/13/17 Visit #: 14 Date of Evaluation: 10/22/17 Payer Source: MEDICARE Treatment Diagnosis: Frequent falls, LE weakness Current Subjective/complaints:: Patient says she did not have any soreness from increasing weight on leg press last session. She says she has already performed HEP this morning and is going to buy ankle weights today to help her at home. She says she is able to see improvement with gait and strength, but remains dizzy on shifting weight on our therapy air pad. Interventions - Exercise/Activities/Manual Therapy Exercises/Activities: Omitted Bal Product Safety Coordinator today due to request and patient appears SOB, which increases with this activity. Standing at railin 1/2# each LE for hip abd with and incorporating high step sidestepping x 10. Single leg stance with 2 1/2# using only one hand on railing (opposite) up to 15 sec's x 2. Wall push ups for scapular strengthening and bal x 10. Sitting reaching for 3# ball at floor and above head and crossing midline. Also, for diagnonals 2x5 and holding up to 3-5 sec's for trunk control/strength. 3# therapy bar and 2 1/2# ankle weights for alternate LE and bilateral shoulder flexion x 8. Standing: Green tband for scap retraction and bilateral horizontal shoulder abd x 10. Shelf reach from trunk to overhead with 3# wand 2x10. Forward step ups using L then R 2x5. Lateral step ups leading with L x 5. Dill air pad for weight shifting laterally and then A/P x 10 with cues for cervical neutralization. Patient has less difficulty with dizziness on this activity compared to recent visits per reports and observation. Ended with Leg press 30 # 2x10, 45# x 10. Total minutes of Exercise: 38 Manual Therapy: NA HOME EXERCISE PROGRAM: seated hip fleixon, seated unsupported anterior/ posterior trunk weight shifting, bridging, and standing hip abduction. Emphasized the need to use a secure surface to hold on to for the standing hip exercise. - Charges Timed Code Treatment Minutes: 38 Total Treatment Time: 38 Procedures billed for this date of service:: ex2, neuro1 Assessment: Patient demo improved trunk control with all therex mostly through sitting challenging UE/LE together and no dizziness now with Weight shifting on dill air pad. She is able to progress weight on Leg press without soreness, standing therex and multi tasking activities as well as exercises above head are less difficult for patient and she is able to maintain bal with increasingly challenging neuro activity. Patient Education: Education of diagnosis, Education of Plan of Care Patient demonstrates compliance with HEP?: Yes Short Term Goals Goal #1: Pt independent and compliant with HEP. Goal to be met by: 11/06/17 Progress towards Goal:: Met Goal #2: Trunk strength 4/5. Goal to be met by: 11/06/17 Progress towards Goal:: Met Goal #3: Bilateral hip strength generally 4+/5. Goal to be met by: 12/13/17 Note Taker Goals Goal #1: Pt knows HEP and to continue ex's to maintain level of function at D/C. Goal to be met by: 12/18/17 Progress towards goal: Progressing Goal #2: Score on Tinetti Assessment improved to 24/28. Goal to be met by: 12/18/17 Progress towards goal: Met Goal #3: Pt to amb. community distances with AAD and good safety. Goal to be met by: 12/18/17 Progress towards goal: Met Goal #4: Pt to report improved confidence in balance and safety. Goal to be met by: 12/18/17 Progress towards goal: Progressing Plan PLAN OF CARE EXPIRES ON:: 12/18/17 ORDER # VISITS AND/OR THROUGH DATE: 12/18/17 PLAN: Patient to continue for progressed bal activities next week and will then plan for discharge.
--- NOTE | 2017-12-19 11:55 | RS.OPPTDN ---
Subjective Date of Note: 12/17/17 Visit #: 15 Date of Evaluation: 10/22/17 Payer Source: MEDICARE Treatment Diagnosis: Frequent falls, LE weakness Current Subjective/complaints:: Patient says she feels good today. Reports she has visited with family over the weekend that have she has not seen in some time and they have complimented how well she is walking and that she seemed much stronger. She says she had purchased 2, 3# weights to work with at home. Balance System Training - Level 1 Postural Stability/Symmetry #1 Training Mode: Weight Shift Training Vision: Eyes Open Platform Stability Level (1-12): 1 Stance: Narrow Time: 1 to 1.5 mins Reps: 3 - Level 2 Dynamic Weight Shifting #1 Training Mode: Limits of Stability Skill Level (1-3): 1 and 2 Platform Stability Level (1-12): static Time: 1 min Reps: 3 #3 Training Mode: Weight Shift Skill Level (1-3): 2: A/P diagonal Platform Stability Level (1-12): 1 Time: 1-1.5 min Reps: 3 Interventions - Exercise/Activities/Manual Therapy Exercises/Activities: See Balance Speech Pathologist Assistant Tab. Hip abd at railing incorporating high step sidestepping with 3# ankle weights x 10. Forward ( leading with R then vc's to sequence and switch to leading with the L) and side stepping on step board x 10 each. Standing at shelf activity, 3# wand for trunk to overhead 2x10 reps. Standing scap retraction with green tband 2x10, overhead pull downs with green tband 2x10. Pull downs with alternating hip flexion x 10. Standing bouncing ball against the wall x 10, Single leg stance with bouncing ball against the wall x 10. Leg press beginning with 30#, 45#, 60 #, and 75# x 10 reps with rest breaks. Total minutes of Exercise: 45 Manual Therapy: NA HOME EXERCISE PROGRAM: seated hip fleixon, seated unsupported anterior/ posterior trunk weight shifting, bridging, and standing hip abduction. Emphasized the need to use a secure surface to hold on to for the standing hip exercise. - Objective Findings Observations,measurements,etc.: Tinetti Test remains to be 24/28 or 15% impairment. TUG test is now 10 sec's (at 10th visit was 12). Patient does not rely on hand/arm rest when standing up or reaching back at home, but did so during test. - Charges Timed Code Treatment Minutes: 45 Total Treatment Time: 45 Procedures billed for this date of service:: neuro2, ex1 Assessment: Patient has demo improvement per Balance [place] compared to last week in the category of weight shifting L to R and A/P now 78% accuracy from 64% . Also, slight improvement with Limits of Stability category from 24% accuracy to 29%. She has performed both tests in the medium category instead of "easy" and is improving. Patient Education: Home Exercise Program, Education of Plan of Care Patient demonstrates compliance with HEP?: Yes Short Term Goals Goal #1: Pt independent and compliant with HEP. Goal to be met by: 11/06/17 Progress towards Goal:: Met Goal #2: Trunk strength 4/5. Goal to be met by: 11/06/17 Progress towards Goal:: Met Goal #3: Bilateral hip strength generally 4+/5. Goal to be met by: 12/13/17 Progress towards Goal:: Met Wire Machine Cutter Goals Goal #1: Pt knows HEP and to continue ex's to maintain level of function at D/C. Goal to be met by: 12/18/17 Progress towards goal: Met Goal #2: Score on Tinetti Assessment improved to 24/28. Goal to be met by: 12/18/17 Progress towards goal: Met Goal #3: Pt to amb. community distances with AAD and good safety. Goal to be met by: 12/18/17 Progress towards goal: Met Goal #4: Pt to report improved confidence in balance and safety. Goal to be met by: 12/18/17 Progress towards goal: Met Plan PLAN OF CARE EXPIRES ON:: 12/18/17 ORDER # VISITS AND/OR THROUGH DATE: 12/18/17 PLAN: plan for d/c with second order to continue. She has made significant progress and will continue to progress with HEP.
--- NOTE | 2017-12-19 12:00 | RS.CSNOTE ---
PT Case Note Date of Note: 12/19/17 Title of document: Case Note Note: Patient seen today only for reassessment for D/c. No charges applied. TUG test was 10 sec's, Tinetti 24/80 or 15%, increased Weight Shift category ( medium) from 78% to 91% in the past week. Limits of Stability category improved from 29% at medium level to 45%. Patient mentions this has been a blessing to her and her theater technician is even able to tell a difference in her gait and bal. Plan to discharge with all goals met.
--- NOTE | 2017-12-26 15:27 | RS.OPPTDC ---
Date of Discharge: 12/19/17 Date of Evaluation: 10/22/17 Number of Visits: 15 Treatment Diagnosis: Frequent falls, LE weakness Current Complaints/Gains: Patient states family and friends have commented that her gait and balance appear to have improved. She reports improved LE strength and she is very satisified with her results. Reports she is performing her HEP consistently and using weights and therabands. Functional Outcome Measure Tinetti: 24 (=14% impairment) Other: TUG 10.5 seconds - G Codes & Severity Modifier G Codes & Modifier: Mobility D/C CI. Mobility Goal CI Source of G Code score: Tinetti Gait - Gait Pattern Gait Comments: Patient ambulates without assistive device. Consistently demonstrates good foot clearance. Demonstrates no loss of balance or deviation from straight path. Interventions - Exercise/Activities/Manual Therapy Exercises/Activities: NA Manual Therapy: NA HOME EXERCISE PROGRAM: seated hip fleixon, seated unsupported anterior/ posterior trunk weight shifting, bridging, and standing hip abduction. Emphasized the need to use a secure surface to hold on to for the standing hip exercise. - Objective Findings Observations,measurements,etc.: Balance technical trainer scores improved with lateral weight shifting by 30% and Limits of stability improved by 40%. Demonst - Charges Timed Code Treatment Minutes: Na Total Treatment Time: NA Procedures billed for this date of service:: NA Assessment Assessment: Patient has made good progress with therapy. Her Tinetti and TUG score improved, decreasing her risk for falls. She is pleased with how much therapy has been of benefit to her walking and balance. She demonstrates the ability to continue with her HEP on her own. Short Term Goals Goal #1: Pt independent and compliant with HEP. Goal to be met by: 11/06/17 Progress towards Goal:: Met Goal #2: Trunk strength 4/5. Goal to be met by: 11/06/17 Progress towards Goal:: Met Goal #3: Bilateral hip strength generally 4+/5. Goal to be met by: 12/13/17 Progress towards Goal:: Met Detention Goals Goal #1: Pt knows HEP and to continue ex's to maintain level of function at D/C. Goal to be met by: 12/18/17 Progress towards goal: Met Goal #2: Score on Tinetti Assessment improved to 2428. Goal to be met by: 12/18/17 Progress towards goal: Met Goal #3: Pt to amb. community distances with AAD and good safety. Goal to be met by: 12/18/17 Progress towards goal: Met Goal #4: Pt to report improved confidence in balance and safety. Goal to be met by: 12/18/17 Progress towards goal: Met Plan Reason for Discharge:: No Further Skilled Therapy Indicated
== END 2018-01-11 ==
PROVIDERS: ATTEND Internal Medicine Nephrology
DX: R29.6 Repeated falls (principal); R26.9 Unspecified abnormalities of gait and mobility; N18.3 Chronic kidney disease, stage 3 (moderate); I10 Essential (primary) hypertension; E08.8 Diabetes mellitus due to underlying condition with unspecified complications